=== PATIENT | male | born 1975 | race Caucasian/White ===

== ENCOUNTER 2018-06-02 14:14 | Inpatient (IN) | payer OTHER ==
[2018-06-02 14:25] VITALS: BMI 23.8
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
[2018-06-02] MEDS ORDERED: guaiFENesin/D-METHORPHAN HB 10 ML UNIT-DOSE CUPS PO PRN (15:02)
[2018-06-02] MEDS ORDERED: P-EPHED 60MG/TRIPROLIDI 2.5MG TABLET PO PRN (15:02)
[2018-06-02] MEDS ORDERED: MAGNESIUM HYDROX 2400MG/30ML ORAL SUSPENSION 30 ML CUP PO PRN (15:02)
[2018-06-02] MEDS ORDERED: IBUPROFEN 400 MG TABLET (FP) PO PRN (15:02)
[2018-06-02] MEDS ORDERED: MAGNESIUM CITRATE 300 ML BOTTLE PO PRN (15:02)
[2018-06-02] MEDS ORDERED: ACETAMINOPHEN 325 MG TABLET (FP) PO PRN (15:02)
[2018-06-02] MEDS ORDERED: MAG HYDROX/AL HYDROX/SIMETH 30 ML UNIT-DOSE CUP PO PRN (15:02)
[2018-06-02] MEDS ORDERED: MENTHOL/PHENOL 1 EACH UD MM PRN (15:02)
[2018-06-02] MEDS ORDERED: LOPERAMIDE HCL 2 MG CAPSULE PO PRN (15:02)
[2018-06-02] MEDS ORDERED: METHADONE HCL 10 MG TABLET (FOR DETOX USE ONLY) PO ONE ×2 (16:15→23:00)
[2018-06-02] MEDS: diazePAM 5 MG TABLET PO PRN (18:50)
[2018-06-02] MEDS: NICOTINE POLACRILEX 4 MG GUM BC PRN (19:42)
[2018-06-02] MEDS ORDERED: MELATONIN 5 MG TABLETS PO PRN (22:00)
[2018-06-02] MEDS: THIAMINE HCL 100 MG TABLET (FP) PO SCH (22:32)
[2018-06-03] MEDS: diazePAM 5 MG TABLET PO PRN ×4 (03:51→22:41)
[2018-06-03] MEDS: NICOTINE POLACRILEX 4 MG GUM BC PRN ×3 (06:43→14:47)
[2018-06-03] MEDS ORDERED: METHADONE HCL 10 MG TABLET (FOR DETOX USE ONLY) PO ONE (10:00)
[2018-06-03] MEDS: PRENATAL VITAMINS W/ FOLIC ACID TABLET (FP) PO SCH (10:07)
[2018-06-03 10:52] LABS: ALK PHOS 74 U/L (45-117); ANION GAP 5 MMOL/L (8-16); BILIRUBIN,TOTAL 0.5 mg/dL (0.2-1); BLOOD UREA NITROGEN 13 mg/dL (7-18); CALCIUM 8.5 mg/dL (8.5-10.1); CHLORIDE 99 mmol/L (98-107); CO2 31 mmol/L (21-32); CREATININE 0.9 mg/dL (0.55-1.3); GLUCOSE,RANDOM 60 mg/dL (74-106); POTASSIUM 3.7 mmol/L (3.5-5.1); SGOT/AST 25 U/L (15-37); SGPT/ALT 28 U/L (13-61); SODIUM 136 mmol/L (136-145)
[2018-06-03 10:59] LABS: HEMATOCRIT 41.5 % (35.4-49); HEMOGLOBIN 14.4 GM/dL (11.7-16.9); MCH 32.7 pg (25.7-33.7); MCHC 34.8 g/dl (32.0-35.9); MEAN PLT VOLUME 8.3 fl (7.5-11.1); PLATELET COUNT 184 K/MM3 (134-434); RBC 4.41 M/mm3 (4.00-5.60); RDW 13.3 % (11.9-15.9); WHITE BLOOD COUNT 7.2 K/mm3 (4.0-10.0)
--- NOTE | 2018-06-03 14:56 | PN ---
BHS COWS - Scale Resting Pulse: 0= [place] 80 or Below Sweatin= Chills/Flushing Restless Observation: 3= Extraneous Movement Pupil Size: 0= Normal to Room Light Bone or Joint Aches: 2= Severe Diffuse Aches Runny Nose/ Eye Tearin= Runny Nose/Eyes GI Upset > 30mins: 3= Vomiting/Diarrhea Tremor Observation of Outstretched Hands: 2= Slight Tremor Visible Yawning Observation: 1= 1-2x During Session Anxiety or Irritability: 2=Irritable/Anxious Goose Flesh Skin: 0=Smooth Skin COWS Score: 16 BHS Progress Note (SOAP) Subjective: Tremor, interrupted sleep Objective: 06/03/18 14:55 Last Vital Signs Temp Pulse Resp BP Pulse Ox 98.5 F 70 18 101/66 06/03/18 13:21 06/03/18 13:21 06/03/18 13:21 06/03/18 13:21 Laboratory Tests 06/03/18 06/03/18 06/03/18 07:50 07:50 07:50 WBC 7.2 RBC 4.41 Hgb 14.4 Hct 41.5 MCV 94.0 MCH 32.7 MCHC 34.8 RDW 13.3 Plt Count 184 MPV 8.3 Sodium 136 Potassium 3.7 Chloride 99 Carbon Dioxide 31 Anion Gap 5 L BUN 13 Creatinine 0.9 Creat Clearance w eGFR > 60 Random Glucose 60 L Calcium 8.5 Total Bilirubin 0.5 AST 25 ALT 28 Alkaline Phosphatase 74 Total Protein 7.0 Albumin 4.0 RPR Titer Nonreactive HIV 1&2 Antibody Screen HIV P24 Antigen 06/03/18 07:50 WBC RBC Hgb Hct MCV MCH MCHC RDW Plt Count MPV Sodium Potassium Chloride Carbon Dioxide Anion Gap BUN Creatinine Creat Clearance w eGFR Random Glucose Calcium Total Bilirubin AST ALT Alkaline Phosphatase Total Protein Albumin RPR Titer HIV 1&2 Antibody Screen Negative HIV P24 Antigen Negative Labs reviewed Assessment: 06/03/18 14:56 Withdrawal symptoms Plan: Continue detox Encourage PO water hydration
--- NOTE | 2018-06-03 22:14 | EKG ---
Test Reason : Blood Pressure : / mmHG Vent. Rate : 071 BPM Atrial Rate : 071 BPM P-R Int : 156 ms QRS Dur : 090 ms QT Int : 372 ms P-R-T Axes : 058 071 050 degrees QTc Int : 404 ms SINUS RHYTHM WITH MARKED SINUS ARRHYTHMIA OTHERWISE NORMAL ECG NO PREVIOUS ECGS AVAILABLE Confirmed by OBI PERALES MD ([id number]) on 06/03/2018 10:14:19 PM Referred By: HUGO IZAGUIRRE Confirmed By:OBI PERALES MD
[2018-06-03] MEDS: THIAMINE HCL 100 MG TABLET (FP) PO SCH (22:41)
[2018-06-04] MEDS ORDERED: METHADONE HCL 5 MG TABLET (FOR DETOX USE ONLY) PO ONE (10:00)
[2018-06-04] MEDS: PRENATAL VITAMINS W/ FOLIC ACID TABLET (FP) PO SCH (10:19)
[2018-06-04] MEDS: diazePAM 5 MG TABLET PO PRN ×2 (10:19→22:14)
[2018-06-04] MEDS: NICOTINE POLACRILEX 4 MG GUM BC PRN ×2 (10:21→20:49)
--- NOTE | 2018-06-04 12:05 | PN ---
BHS COWS - Scale Resting Pulse: 0= [place] 80 or Below Sweatin=Flushed/Facial Moisture Restless Observation: 0= Sits Still Pupil Size: 0= Normal to Room Light Bone or Joint Aches: 1= Mild Discomfort Runny Nose/ Eye Tearin= Nasal Congestion GI Upset > 30mins: 1= Stomach Cramp Tremor Observation of Outstretched Hands: 2= Slight Tremor Visible Yawning Observation: 0= None Anxiety or Irritability: 1=Feels Anxious/Irritable Goose Flesh Skin: 0=Smooth Skin COWS Score: 8 BHS Progress Note (SOAP) Subjective: abd cramp sweats Objective: 06/04/18 12:03 A & O x 3 Met sitting in day room cahtting with other pts In no acute distress Vital Signs Temperature 98.1 F 06/04/18 09:09 Pulse Rate 72 06/04/18 09:09 Respiratory Rate 18 06/04/18 09:09 Blood Pressure 127/68 06/04/18 09:09 O2 Sat by Pulse Oximetry (%) Assessment: 06/04/18 12:04 withdrawal sx Plan: continue detox continue water hydration
[2018-06-04] MEDS: THIAMINE HCL 100 MG TABLET (FP) PO SCH (22:14)
[2018-06-05] MEDS: METHADONE HCL 5 MG TABLET (FOR DETOX USE ONLY) PO ONE ×2 (10:34→10:39)
[2018-06-05] MEDS: diazePAM 5 MG TABLET PO PRN ×2 (10:34→10:38)
[2018-06-05] MEDS: PRENATAL VITAMINS W/ FOLIC ACID TABLET (FP) PO SCH ×2 (10:34→10:38)
[2018-06-05] MEDS: NICOTINE POLACRILEX 4 MG GUM BC PRN ×3 (10:40→22:08)
--- NOTE | 2018-06-05 12:39 | PN ---
BHS Progress Note (SOAP) Subjective: Sweating, Interrupted Sleep. Objective: PATIENT A & O X 2 (UNCERTAIN ABOUT CURRENT DAY / DATE). PATIENT OBSERVED AMBULATING ON UNIT. IN NO ACUTE DISTRESS. 06/05/18 12:40 Vital Signs Temperature 96.4 F L 06/05/18 09:54 Pulse Rate 56 L 06/05/18 09:54 Respiratory Rate 16 06/05/18 09:54 Blood Pressure 116/69 06/05/18 09:54 O2 Sat by Pulse Oximetry (%) Laboratory Tests 06/03/18 06/03/18 06/03/18 07:50 07:50 07:50 WBC 7.2 RBC 4.41 Hgb 14.4 Hct 41.5 MCV 94.0 MCH 32.7 MCHC 34.8 RDW 13.3 Plt Count 184 MPV 8.3 Sodium 136 Potassium 3.7 Chloride 99 Carbon Dioxide 31 Anion Gap 5 L BUN 13 Creatinine 0.9 Creat Clearance w eGFR > 60 Random Glucose 60 L Calcium 8.5 Total Bilirubin 0.5 AST 25 ALT 28 Alkaline Phosphatase 74 Total Protein 7.0 Albumin 4.0 RPR Titer Nonreactive HIV 1&2 Antibody Screen HIV P24 Antigen 06/03/18 07:50 WBC RBC Hgb Hct MCV MCH MCHC RDW Plt Count MPV Sodium Potassium Chloride Carbon Dioxide Anion Gap BUN Creatinine Creat Clearance w eGFR Random Glucose Calcium Total Bilirubin AST ALT Alkaline Phosphatase Total Protein Albumin RPR Titer HIV 1&2 Antibody Screen Negative HIV P24 Antigen Negative LABS NOTED. Assessment: 06/05/18 12:40 WITHDRAWAL SYMPTOMS. Plan: CONTINUE DETOX. INCREASE DAILY PO FLUID INTAKE.
[2018-06-05] MEDS: THIAMINE HCL 100 MG TABLET (FP) PO SCH (23:31)
[2018-06-06] MEDS: NICOTINE POLACRILEX 4 MG GUM BC PRN ×5 (06:00→19:33)
[2018-06-06] MEDS ORDERED: METHADONE HCL 10 MG TABLET (FOR DETOX USE ONLY) PO ONE (10:00)
[2018-06-06] MEDS: PRENATAL VITAMINS W/ FOLIC ACID TABLET (FP) PO SCH (10:06)
--- NOTE | 2018-06-06 15:28 | PN ---
BHS Progress Note (SOAP) Subjective: Sweating (Mild), Interrupted Sleep. Patient Reports that Withdrawal Symptoms in General are Decreasing in Severity. Objective: PATIENT A & O X 3, OBSERVED AMBULATING ON UNIT. IN NO ACUTE DISTRESS. 06/06/18 15:29 Vital Signs Temperature 97.9 F 06/06/18 13:04 Pulse Rate 76 06/06/18 13:04 Respiratory Rate 18 06/06/18 13:04 Blood Pressure 115/66 06/06/18 13:04 O2 Sat by Pulse Oximetry (%) Laboratory Tests 06/03/18 06/03/18 06/03/18 07:50 07:50 07:50 WBC 7.2 RBC 4.41 Hgb 14.4 Hct 41.5 MCV 94.0 MCH 32.7 MCHC 34.8 RDW 13.3 Plt Count 184 MPV 8.3 Sodium 136 Potassium 3.7 Chloride 99 Carbon Dioxide 31 Anion Gap 5 L BUN 13 Creatinine 0.9 Creat Clearance w eGFR > 60 Random Glucose 60 L Calcium 8.5 Total Bilirubin 0.5 AST 25 ALT 28 Alkaline Phosphatase 74 Total Protein 7.0 Albumin 4.0 RPR Titer Nonreactive HIV 1&2 Antibody Screen HIV P24 Antigen 06/03/18 07:50 WBC RBC Hgb Hct MCV MCH MCHC RDW Plt Count MPV Sodium Potassium Chloride Carbon Dioxide Anion Gap BUN Creatinine Creat Clearance w eGFR Random Glucose Calcium Total Bilirubin AST ALT Alkaline Phosphatase Total Protein Albumin RPR Titer HIV 1&2 Antibody Screen Negative HIV P24 Antigen Negative LABS NOTED. Assessment: 06/06/18 15:30 WITHDRAWAL SYMPTOMS. Plan: CONTINUE DETOX. PATIENT SCHEDULED FOR D/C TOMORROW.
[2018-06-06] MEDS: THIAMINE HCL 100 MG TABLET (FP) PO SCH (22:19)
[2018-06-07] MEDS ORDERED: METHADONE HCL 5 MG TABLET (FOR DETOX USE ONLY) PO ONE (06:00)
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
[2018-06-07] MEDS: PRENATAL VITAMINS W/ FOLIC ACID TABLET (FP) PO SCH (09:47)
[2018-06-07] MEDS: NICOTINE POLACRILEX 4 MG GUM BC PRN ×2 (09:47→12:41)
[2018-06-07 17:19] VITALS: TEMP 97.7
[2018-06-07 17:22] VITALS: BP 105/62; PULSE 69
== END 2018-06-07 17:42 | disposition other institution (70) | DRG 773 ==
LOC: YASAS 14:14 → Y6N 15:03
PROVIDERS: ADMIT Surgery; ATTEND Surgery
PROC: HZ2ZZZZ Detoxification Services for Substance Abuse Treatment (ICD-10-PCS; principal; 2018-06-02)
PROC: HZ2ZZZZ Detoxification Services for Substance Abuse Treatment (ICD-10-PCS; 2018-06-02)
DX: F11.23 Opioid dependence with withdrawal (principal); F17.210 Nicotine dependence, cigarettes, uncomplicated; B18.2 Chronic viral hepatitis C; Z86.19 Personal history of other infectious and parasitic diseases; Z87.828 Personal history of other (healed) physical injury and trauma
CPT/HCPCS: 36415; 80053; 85027; 86593; 87389; 93005; 93010

== ENCOUNTER 2018-06-07 17:49 | Inpatient (IN) | payer OTHER ==
--- NOTE | 2018-06-07 17:59 | HP ---
[facility] Rehab Assess/Revision - Admission History Admitted to Rehab from[facility] - Findings Detox History & Physical reviewed: Yes Concur with findings: Yes Inpatient Rehab Admission - Rehab Decision to Admit Inpatient rehab admission?: Yes - Initial Determination Are CD services needed?: Yes Free of communicable disease: Yes Not in need of hospitalization: Yes - Rehab Admission Criteria Previous failed treatment: Yes Poor recovery environment: Yes Comorbidities: Yes Lacks judgement: Yes Patient is meeting Inpatient Rehab admission criteria:: Yes
[2018-06-07] MEDS ORDERED: ACETAMINOPHEN 325 MG TABLET (FP) PO PRN (18:01)
[2018-06-07] MEDS ORDERED: MENTHOL/PHENOL 1 EACH UD MM PRN (18:01)
[2018-06-07] MEDS ORDERED: P-EPHED 60MG/TRIPROLIDI 2.5MG TABLET PO PRN (18:01)
[2018-06-07] MEDS ORDERED: LOPERAMIDE HCL 2 MG CAPSULE PO PRN (18:01)
[2018-06-07] MEDS ORDERED: MAGNESIUM CITRATE 300 ML BOTTLE PO PRN (18:01)
[2018-06-07] MEDS ORDERED: IBUPROFEN 400 MG TABLET (FP) PO PRN (18:01)
[2018-06-07] MEDS ORDERED: guaiFENesin/D-METHORPHAN HB 10 ML UNIT-DOSE CUPS PO PRN (18:01)
[2018-06-07] MEDS ORDERED: MAG HYDROX/AL HYDROX/SIMETH 30 ML UNIT-DOSE CUP PO PRN (18:01)
[2018-06-07] MEDS ORDERED: MAGNESIUM HYDROX 2400MG/30ML ORAL SUSPENSION 30 ML CUP PO PRN (18:01)
[2018-06-07] MEDS ORDERED: hydrOXYzine PAMOATE 50 MG CAPSULE (FP) PO PRN (18:01)
[2018-06-07] MEDS: THIAMINE HCL 100 MG TABLET (FP) PO SCH (21:17)
[2018-06-07] MEDS: NICOTINE POLACRILEX 2 MG GUM BC PRN (21:18)
[2018-06-07] MEDS ORDERED: MELATONIN 5 MG TABLETS PO PRN (22:00)
[2018-06-08] MEDS: NICOTINE POLACRILEX 2 MG GUM BC PRN ×3 (06:21→21:15)
[2018-06-08] MEDS: NICOTINE 14 MG/24 HOURS TOPICAL PATCH TD SCH (10:20)
[2018-06-08] MEDS: PRENATAL VITAMINS W/ FOLIC ACID TABLET (FP) PO SCH (10:20)
[2018-06-08] MEDS: THIAMINE HCL 100 MG TABLET (FP) PO SCH (21:15)
[2018-06-09] MEDS: NICOTINE 14 MG/24 HOURS TOPICAL PATCH TD SCH (10:55)
[2018-06-09] MEDS: PRENATAL VITAMINS W/ FOLIC ACID TABLET (FP) PO SCH (10:55)
[2018-06-09] MEDS: THIAMINE HCL 100 MG TABLET (FP) PO SCH (21:09)
[2018-06-09] MEDS: NICOTINE POLACRILEX 2 MG GUM BC PRN (21:09)
[2018-06-10] MEDS: PRENATAL VITAMINS W/ FOLIC ACID TABLET (FP) PO SCH (10:45)
[2018-06-10] MEDS: NICOTINE 14 MG/24 HOURS TOPICAL PATCH TD SCH (10:45)
[2018-06-10] MEDS: NICOTINE POLACRILEX 2 MG GUM BC PRN (21:07)
[2018-06-10] MEDS: THIAMINE HCL 100 MG TABLET (FP) PO SCH (21:07)
[2018-06-11] MEDS: NICOTINE 14 MG/24 HOURS TOPICAL PATCH TD SCH (10:37)
[2018-06-11] MEDS: PRENATAL VITAMINS W/ FOLIC ACID TABLET (FP) PO SCH (10:37)
[2018-06-11] MEDS: NICOTINE POLACRILEX 2 MG GUM BC PRN (21:12)
[2018-06-11] MEDS: THIAMINE HCL 100 MG TABLET (FP) PO SCH (21:12)
[2018-06-12] MEDS: PRENATAL VITAMINS W/ FOLIC ACID TABLET (FP) PO SCH (09:37)
[2018-06-12] MEDS: NICOTINE POLACRILEX 2 MG GUM BC PRN ×2 (09:37→21:06)
[2018-06-12] MEDS: NICOTINE 14 MG/24 HOURS TOPICAL PATCH TD SCH (09:37)
[2018-06-12] MEDS: THIAMINE HCL 100 MG TABLET (FP) PO SCH (21:06)
[2018-06-13] MEDS: NICOTINE POLACRILEX 2 MG GUM BC PRN ×2 (09:35→21:12)
[2018-06-13] MEDS: NICOTINE 14 MG/24 HOURS TOPICAL PATCH TD SCH (09:35)
[2018-06-13] MEDS: PRENATAL VITAMINS W/ FOLIC ACID TABLET (FP) PO SCH (09:35)
[2018-06-13] MEDS: THIAMINE HCL 100 MG TABLET (FP) PO SCH (21:12)
[2018-06-14] MEDS: PRENATAL VITAMINS W/ FOLIC ACID TABLET (FP) PO SCH (10:03)
[2018-06-14] MEDS: NICOTINE 14 MG/24 HOURS TOPICAL PATCH TD SCH (10:03)
--- NOTE | 2018-06-14 12:13 | PN ---
BHS Progress Note Note: NURSE EPORTS THAT PT WANTS, MVI,THIAMINE AND NICOTINE PATCH DICONTINUED. Vital Signs (72 hours) 06/12/18 06/12/18 06/12/18 00:30 03:30 06:55 Temperature 97.6 F Pulse Rate 57 L Respiratory 18 18 18 Rate Blood Pressure 129/53 L 06/13/18 06/13/18 06/14/18 00:30 07:50 03:30 Temperature 97.8 F Pulse Rate 58 L Respiratory 18 17 16 Rate Blood Pressure 126/69 06/14/18 06:59 Temperature 97.5 F L Pulse Rate 59 L Respiratory 16 Rate Blood Pressure 116/60
[2018-06-14] MEDS: NICOTINE POLACRILEX 2 MG GUM BC PRN (21:10)
[2018-06-15] MEDS: NICOTINE POLACRILEX 2 MG GUM BC PRN ×2 (10:52→22:58)
[2018-06-16] MEDS: NICOTINE POLACRILEX 2 MG GUM BC PRN ×2 (14:32→21:05)
[2018-06-17] MEDS: NICOTINE POLACRILEX 2 MG GUM BC PRN ×3 (14:14→22:03)
[2018-06-18] MEDS: NICOTINE POLACRILEX 2 MG GUM BC PRN ×2 (18:44→21:10)
[2018-06-19] MEDS: NICOTINE POLACRILEX 2 MG GUM BC PRN (09:35)
[2018-06-20 06:37] VITALS: BP 114/65; PULSE 72; TEMP 98.1
[2018-06-20] MEDS: NICOTINE POLACRILEX 2 MG GUM BC PRN ×4 (10:08→21:59)
--- NOTE | 2018-06-21 09:29 | PN ---
[facility] Progress Note Note: PT COMPLETED REHAB AND REFERRED TO [facility] FOR CD AFTER[facility]ARE ON [address], [place]. PT REPORTS HE GETS PRIMARY CARE AT [facility] WHEN NEEDED. PT IS ALERT O X 3. AMBULATES WITH STEADY GAIT. DENIES S/H/I. Home Medications Medication Instructions Recorded Naloxone HCl [Narcan] 4 mg NS ONCE #1 spray 06/21/18 Vital Signs (72 hours) 06/19/18 06/19/18 06/20/18 03:30 06:45 00:30 Temperature 97.6 F Pulse Rate 71 Respiratory 16 18 18 Rate Blood Pressure 111/65 06/20/18 06/20/18 06/21/18 03:30 06:36 00:30 Temperature 98.1 F Pulse Rate 72 Respiratory 18 16 18 Rate Blood Pressure 114/65 06/21/18 03:30 Temperature Pulse Rate Respiratory 18 Rate Blood Pressure NAD MEDICALLY STABLE PLAN:FOLLOW UP WITH CD AFTERCARE ON 06/21/18 AT 11:00 AND MEDICAL MANAGEMENT RECOMMENDED. ADDENDUM:PT DECLINED ABOVE NARCAN STATING "I HAVE MULTIPLE NARCAN. I DON'T NEED ANY NOW".
[2018-06-21] MEDS: NICOTINE POLACRILEX 2 MG GUM BC PRN (10:05)
== END 2018-06-21 10:30 | disposition home or self-care (01) | DRG 772 ==
LOC: YASAS 17:49 → Y5N 17:50
PROVIDERS: ADMIT Neuromusculoskeletal Medicine & OMM; ATTEND Neuromusculoskeletal Medicine & OMM
PROC: HZ42ZZZ Group Counseling for Substance Abuse Treatment, Cognitive-Behavioral (ICD-10-PCS; principal; 2018-06-07)
DX: F11.20 Opioid dependence, uncomplicated (principal); F17.210 Nicotine dependence, cigarettes, uncomplicated; B18.2 Chronic viral hepatitis C

== ENCOUNTER 2019-04-17 12:54 | Inpatient (IN) | payer OTHER ==
[2019-04-17 15:36] VITALS: BMI 22.4
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
[2019-04-17] MEDS ORDERED: NICOTINE POLACRILEX 2 MG GUM BUC PRN (18:48)
[2019-04-17] MEDS ORDERED: ACETAMINOPHEN 325 MG TABLET (FP) PO PRN ×2 (18:48)
[2019-04-17] MEDS ORDERED: MENTHOL/PHENOL 1 EACH UD MM PRN (18:48)
[2019-04-17] MEDS ORDERED: MAGNESIUM CITRATE 300 ML BOTTLE PO PRN (18:48)
[2019-04-17] MEDS ORDERED: MAG HYDROX/AL HYDROX/SIMETH 30 ML UNIT-DOSE CUP PO PRN (18:48)
[2019-04-17] MEDS ORDERED: METHOCARBAMOL 500 MG TABLET PO PRN (18:48)
[2019-04-17] MEDS ORDERED: MAGNESIUM HYDROX 2400MG/30ML ORAL SUSPENSION 30 ML CUP PO PRN (18:48)
[2019-04-17] MEDS ORDERED: METHADONE HCL 10 MG TABLET (FOR DETOX USE ONLY) PO ONE (18:48)
[2019-04-17] MEDS ORDERED: PROCHLORPERAZINE MALEATE 5 MG TABLET PO PRN (18:48)
[2019-04-17] MEDS ORDERED: BISMUTH SUBSALICYLATE 524 MG/30 ML UD PO PRN (18:48)
[2019-04-17] MEDS ORDERED: IBUPROFEN 400 MG TABLET (FP) PO PRN (18:48)
[2019-04-17] MEDS: clonazePAM 0.5 MG TABLET PO PRN (20:18)
[2019-04-17] MEDS: THIAMINE HCL 100 MG TABLET (FP) PO SCH (22:44)
[2019-04-17] MEDS: MELATONIN 5 MG TABLETS PO PRN (22:45)
[2019-04-18] MEDS ORDERED: METHADONE HCL 5 MG TABLET (FOR DETOX USE ONLY) PO ONE (10:00)
[2019-04-18] MEDS: NICOTINE 21 MG/24 HOURS TOPICAL PATCH TD SCH (10:21)
[2019-04-18] MEDS: PRENATAL VITAMINS W/ FOLIC ACID TABLET (FP) PO SCH (10:21)
[2019-04-18 10:45] LABS: HEMATOCRIT 40.5 % (35.4-49); HEMOGLOBIN 13.4 GM/dL (11.7-16.9); MCH 30.6 pg (25.7-33.7); MCHC 33.2 g/dl (32.0-35.9); MEAN CELL VOLUME 92.1 fl (80-96); MEAN PLT VOLUME 8.3 fl (7.5-11.1); PLATELET COUNT 232 K/MM3 (134-434); RDW 13.5 % (11.9-15.9); WHITE BLOOD COUNT 7.5 K/mm3 (4.0-10.0)
[2019-04-18 11:01] LABS: ALBUMIN 3.3 g/dl (3.4-5.0); BILIRUBIN,TOTAL 0.3 mg/dL (0.2-1); BLOOD UREA NITROGEN 21.8 mg/dL (7-18); CALCIUM 8.9 mg/dL (8.5-10.1); CREATININE 0.8 mg/dL (0.55-1.3); POTASSIUM 4.3 mmol/L (3.5-5.1); TOT PROT 6.3 g/dl (6.4-8.2)
--- NOTE | 2019-04-18 11:53 | EKG ---
Test Reason : Blood Pressure : / mmHG Vent. Rate : 068 BPM Atrial Rate : 068 BPM P-R Int : 164 ms QRS Dur : 084 ms QT Int : 386 ms P-R-T Axes : 061 086 068 degrees QTc Int : 410 ms NORMAL SINUS RHYTHM NORMAL ECG WHEN COMPARED WITH ECG OF 02-JUN-2018 18:34, NO SIGNIFICANT CHANGE WAS FOUND Confirmed by SAHARA HERRERA MD ([id number]) on 04/18/2019 11:53:08 AM Referred By: Confirmed By:SAHARA HERRERA MD
--- NOTE | 2019-04-18 12:58 | PN ---
S COWS - Scale Resting Pulse: 0= [place] 80 or Below Sweatin= Chills/Flushing Restless Observation: 0= Sits Still Pupil Size: 1= Pupils >than Normal Bone or Joint Aches: 1= Mild Discomfort Runny Nose/ Eye Tearin= None GI Upset > 30mins: 2= Nausea/Diarrhea Tremor Observation of Outstretched Hands: 1= Tremor [place], Not Seen Yawning Observation: 0= None Anxiety or Irritability: 2=Irritable/Anxious Goose Flesh Skin: 3=Piloerection COWS Score: 11 [facility] Progress Note (SOAP) Subjective: 44 years old male admitted on 04/17/19 for opiate withdrawal sx management treating with methadone detox regimen ate breakfast and lunch tolerated food and fluid well encourage the patient to attend behavioral and psychosocial therapies while in detox Objective: 04/18/19 13:07 Vital Signs Temperature 98.0 F 04/18/19 13:06 Pulse Rate 67 04/18/19 13:06 Respiratory Rate 18 04/18/19 13:06 Blood Pressure 112/70 04/18/19 13:06 O2 Sat by Pulse Oximetry (%) Laboratory Last Values WBC 7.5 K/mm3 (4.0-10.0) 04/18/19 08:15 RBC 4.40 M/mm3 (4.00-5.60) 04/18/19 08:15 Hgb 13.4 GM/dL (11.7-16.9) 04/18/19 08:15 Hct 40.5 % (35.4-49) 04/18/19 08:15 MCV 92.1 fl (80-96) 04/18/19 08:15 MCH 30.6 pg (25.7-33.7) 04/18/19 08:15 MCHC 33.2 g/dl (32.0-35.9) 04/18/19 08:15 RDW 13.5 % (11.9-15.9) 04/18/19 08:15 Plt Count 232 K/MM3 (134-434) D 04/18/19 08:15 MPV 8.3 fl (7.5-11.1) 04/18/19 08:15 Sodium 142 mmol/L (136-145) 04/18/19 08:15 Potassium 4.3 mmol/L (3.5-5.1) 04/18/19 08:15 Chloride 109 mmol/L (98-107) H 04/18/19 08:15 Carbon Dioxide 28 mmol/L (21-32) 04/18/19 08:15 Anion Gap 5 MMOL/L (8-16) L 04/18/19 08:15 BUN 21.8 mg/dL (7-18) H 04/18/19 08:15 Creatinine 0.8 mg/dL (0.55-1.3) 04/18/19 08:15 Est GFR (CKD-EPI)AfAm 126.81 04/18/19 08:15 Est GFR (CKD-EPI)NonAf 109.41 04/18/19 08:15 Random Glucose 82 mg/dL (74-106) 04/18/19 08:15 Calcium 8.9 mg/dL (8.5-10.1) 04/18/19 08:15 Total Bilirubin 0.3 mg/dL (0.2-1) 04/18/19 08:15 AST 12 U/L (15-37) L 04/18/19 08:15 ALT 20 U/L (13-61) 04/18/19 08:15 Alkaline Phosphatase 64 U/L (45-117) 04/18/19 08:15 Total Protein 6.3 g/dl (6.4-8.2) L 04/18/19 08:15 Albumin 3.3 g/dl (3.4-5.0) L 04/18/19 08:15 RPR Titer Nonreactive (NONREACTIVE) 04/18/19 08:15 lab noted Assessment: 04/18/19 13:10 opiate withdrawal Plan: methadone regimen
[2019-04-18] MEDS: THIAMINE HCL 100 MG TABLET (FP) PO SCH (22:13)
[2019-04-18] MEDS: MELATONIN 5 MG TABLETS PO PRN (22:13)
[2019-04-19] MEDS ORDERED: METHADONE HCL 10 MG TABLET (FOR DETOX USE ONLY) PO ONE ×2 (09:45→10:00)
--- NOTE | 2019-04-19 09:46 | PN ---
[facility] COWS - Scale Resting Pulse: 0= [place] 80 or Below Sweatin= Chills/Flushing Restless Observation: 1= Difficult to Sit Still Pupil Size: 0= Normal to Room Light Bone or Joint Aches: 1= Mild Discomfort Runny Nose/ Eye Tearin= Nasal Congestion GI Upset > 30mins: 1= Stomach Cramp Tremor Observation of Outstretched Hands: 1= Tremor [place], Not Seen Yawning Observation: 2= >3x During Session Anxiety or Irritability: 1=Feels Anxious/Irritable Goose Flesh Skin: 0=Smooth Skin COWS Score: 9 [facility] Progress Note (SOAP) Subjective: c/o of interrupted sleep, chills and sweats Objective: 04/19/19 09:44 Vital Signs Temperature 98 F 04/19/19 09:05 Pulse Rate 70 04/19/19 09:05 Respiratory Rate 20 04/19/19 09:05 Blood Pressure 106/58 L 04/19/19 09:05 O2 Sat by Pulse Oximetry (%) Laboratory Last Values WBC 7.5 K/mm3 (4.0-10.0) 04/18/19 08:15 RBC 4.40 M/mm3 (4.00-5.60) 04/18/19 08:15 Hgb 13.4 GM/dL (11.7-16.9) 04/18/19 08:15 Hct 40.5 % (35.4-49) 04/18/19 08:15 MCV 92.1 fl (80-96) 04/18/19 08:15 MCH 30.6 pg (25.7-33.7) 04/18/19 08:15 MCHC 33.2 g/dl (32.0-35.9) 04/18/19 08:15 RDW 13.5 % (11.9-15.9) 04/18/19 08:15 Plt Count 232 K/MM3 (134-434) D 04/18/19 08:15 MPV 8.3 fl (7.5-11.1) 04/18/19 08:15 Sodium 142 mmol/L (136-145) 04/18/19 08:15 Potassium 4.3 mmol/L (3.5-5.1) 04/18/19 08:15 Chloride 109 mmol/L (98-107) H 04/18/19 08:15 Carbon Dioxide 28 mmol/L (21-32) 04/18/19 08:15 Anion Gap 5 MMOL/L (8-16) L 04/18/19 08:15 BUN 21.8 mg/dL (7-18) H 04/18/19 08:15 Creatinine 0.8 mg/dL (0.55-1.3) 04/18/19 08:15 Est GFR (CKD-EPI)AfAm 126.81 04/18/19 08:15 Est GFR (CKD-EPI)NonAf 109.41 04/18/19 08:15 Random Glucose 82 mg/dL (74-106) 04/18/19 08:15 Calcium 8.9 mg/dL (8.5-10.1) 04/18/19 08:15 Total Bilirubin 0.3 mg/dL (0.2-1) 04/18/19 08:15 AST 12 U/L (15-37) L 04/18/19 08:15 ALT 20 U/L (13-61) 04/18/19 08:15 Alkaline Phosphatase 64 U/L (45-117) 04/18/19 08:15 Total Protein 6.3 g/dl (6.4-8.2) L 04/18/19 08:15 Albumin 3.3 g/dl (3.4-5.0) L 04/18/19 08:15 RPR Titer Nonreactive (NONREACTIVE) 04/18/19 08:15 Assessment: 04/19/19 09:45 Aox3 no acute distress EENT WNL Full ROM ambulating in the unit withdrawal sx Plan: increase fluids continue detox continue to monitor
[2019-04-19] MEDS ORDERED: METHADONE HCL 5 MG TABLET (FOR DETOX USE ONLY) PO ONE (10:00)
[2019-04-19] MEDS: PRENATAL VITAMINS W/ FOLIC ACID TABLET (FP) PO SCH (10:54)
[2019-04-19] MEDS: NICOTINE 21 MG/24 HOURS TOPICAL PATCH TD SCH (10:54)
[2019-04-19] MEDS: THIAMINE HCL 100 MG TABLET (FP) PO SCH (22:28)
[2019-04-19] MEDS: MELATONIN 5 MG TABLETS PO PRN (22:29)
[2019-04-20 08:00] LABS: URINE APPEARANCE CLEAR; URINE BILIRUBIN NEGATIVE (NEGATIVE); URINE COLOR YELLOW; URINE GLUCOSE (UA) NEGATIVE (NEGATIVE); URINE KETONE NEGATIVE (NEGATIVE); URINE LEUK ESTERASE NEGATIVE (NEGATIVE); URINE NITRITE NEGATIVE (NEGATIVE); URINE PROTEIN NEGATIVE (NEGATIVE); URINE UROBILINOGEN 0.2 mg/dL (0.2-1.0)
[2019-04-20] MEDS ORDERED: METHADONE HCL 5 MG TABLET (FOR DETOX USE ONLY) PO ONE (10:00)
[2019-04-20] MEDS: PRENATAL VITAMINS W/ FOLIC ACID TABLET (FP) PO SCH (10:51)
[2019-04-20] MEDS: NICOTINE 21 MG/24 HOURS TOPICAL PATCH TD SCH (11:14)
--- NOTE | 2019-04-20 11:25 | PN ---
[facility] COWS - Scale Resting Pulse: 0= [place] 80 or Below Sweatin= No chills or Flushing Restless Observation: 0= Sits Still Pupil Size: 0= Normal to Room Light Bone or Joint Aches: 2= Severe Diffuse Aches Runny Nose/ Eye Tearin= None GI Upset > 30mins: 0= None Tremor Observation of Outstretched Hands: 0= None Yawning Observation: 0= None Anxiety or Irritability: 2=Irritable/Anxious Goose Flesh Skin: 0=Smooth Skin COWS Score: 4 [facility] Progress Note (SOAP) Subjective: c/o mild withdrawal symptoms. Objective: 04/20/19 11:24 Vital Signs 04/20/19 04/20/19 04/20/19 03:30 06:49 09:25 Temperature 97.0 F L 96.9 F L Pulse Rate 58 L 62 Respiratory 18 18 18 Rate Blood Pressure 103/58 L 104/68 Laboratory Last Values WBC 7.5 K/mm3 (4.0-10.0) 04/18/19 08:15 RBC 4.40 M/mm3 (4.00-5.60) 04/18/19 08:15 Hgb 13.4 GM/dL (11.7-16.9) 04/18/19 08:15 Hct 40.5 % (35.4-49) 04/18/19 08:15 MCV 92.1 fl (80-96) 04/18/19 08:15 MCH 30.6 pg (25.7-33.7) 04/18/19 08:15 MCHC 33.2 g/dl (32.0-35.9) 04/18/19 08:15 RDW 13.5 % (11.9-15.9) 04/18/19 08:15 Plt Count 232 K/MM3 (134-434) D 04/18/19 08:15 MPV 8.3 fl (7.5-11.1) 04/18/19 08:15 Sodium 142 mmol/L (136-145) 04/18/19 08:15 Potassium 4.3 mmol/L (3.5-5.1) 04/18/19 08:15 Chloride 109 mmol/L (98-107) H 04/18/19 08:15 Carbon Dioxide 28 mmol/L (21-32) 04/18/19 08:15 Anion Gap 5 MMOL/L (8-16) L 04/18/19 08:15 BUN 21.8 mg/dL (7-18) H 04/18/19 08:15 Creatinine 0.8 mg/dL (0.55-1.3) 04/18/19 08:15 Est GFR (CKD-EPI)AfAm 126.81 04/18/19 08:15 Est GFR (CKD-EPI)NonAf 109.41 04/18/19 08:15 Random Glucose 82 mg/dL (74-106) 04/18/19 08:15 Calcium 8.9 mg/dL (8.5-10.1) 04/18/19 08:15 Total Bilirubin 0.3 mg/dL (0.2-1) 04/18/19 08:15 AST 12 U/L (15-37) L 04/18/19 08:15 ALT 20 U/L (13-61) 04/18/19 08:15 Alkaline Phosphatase 64 U/L (45-117) 04/18/19 08:15 Total Protein 6.3 g/dl (6.4-8.2) L 04/18/19 08:15 Albumin 3.3 g/dl (3.4-5.0) L 04/18/19 08:15 Urine Color Yellow 04/19/19 00:05 Urine Appearance Clear 04/19/19 00:05 Urine pH 6.0 (5.0-8.0) 04/19/19 00:05 Ur Specific [place] 1.032 (1.010-1.035) 04/19/19 00:05 Urine Protein Negative (NEGATIVE) 04/19/19 00:05 Urine Glucose (UA) Negative (NEGATIVE) 04/19/19 00:05 Urine Ketones Negative (NEGATIVE) 04/19/19 00:05 Urine Blood Negative (NEGATIVE) 04/19/19 00:05 Urine Nitrite Negative (NEGATIVE) 04/19/19 00:05 Urine Bilirubin Negative (NEGATIVE) 04/19/19 00:05 Urine Urobilinogen 0.2 mg/dL (0.2-1.0) 04/19/19 00:05 Ur Leukocyte Esterase Negative (NEGATIVE) 04/19/19 00:05 RPR Titer Nonreactive (NONREACTIVE) 04/18/19 08:15 Labs noted. Assessment: 04/20/19 11:24 AOX3, in no acute respiratory distress. Full ROM, ambulating in the unit. Mild withdrawal symptoms. For d/c tomorrow. Plan: continue detox. D/C in AM.
[2019-04-20] MEDS: THIAMINE HCL 100 MG TABLET (FP) PO SCH (22:22)
[2019-04-20] MEDS: MELATONIN 5 MG TABLETS PO PRN (22:23)
[2019-04-20] MEDS: clonazePAM 0.5 MG TABLET PO PRN (22:23)
[2019-04-21] MEDS ORDERED: METHADONE HCL 5 MG TABLET (FOR DETOX USE ONLY) PO ONE (06:00)
--- NOTE | 2019-04-21 09:01 | DS ---
[facility] Detox Discharge Summary Admission Date: 04/17/19 Discharge Date: 04/21/19 - History Present History: Opioid Dependence Additional Comments: 44 years old male admitted on 04/17/19 for opiate withdrawal sx management treatd with methadone detox regimen completed detox regimen tolerated well alert oriented x 3 cardiac s1s2 regular rate rhythm respiratory clear lungs bilaterally on auscultation skin warm and dry - Physical Exam Results Vital Signs: Vital Signs Temperature 97.1 F L 04/21/19 06:49 Pulse Rate 60 04/21/19 06:49 Respiratory Rate 18 04/21/19 06:49 Blood Pressure 102/63 04/21/19 06:49 O2 Sat by Pulse Oximetry (%) Pertinent Admission Physical Exam Findings: opiate withdrawal Laboratory Last Values WBC 7.5 K/mm3 (4.0-10.0) 04/18/19 08:15 RBC 4.40 M/mm3 (4.00-5.60) 04/18/19 08:15 Hgb 13.4 GM/dL (11.7-16.9) 04/18/19 08:15 Hct 40.5 % (35.4-49) 04/18/19 08:15 MCV 92.1 fl (80-96) 04/18/19 08:15 MCH 30.6 pg (25.7-33.7) 04/18/19 08:15 MCHC 33.2 g/dl (32.0-35.9) 04/18/19 08:15 RDW 13.5 % (11.9-15.9) 04/18/19 08:15 Plt Count 232 K/MM3 (134-434) D 04/18/19 08:15 MPV 8.3 fl (7.5-11.1) 04/18/19 08:15 Sodium 142 mmol/L (136-145) 04/18/19 08:15 Potassium 4.3 mmol/L (3.5-5.1) 04/18/19 08:15 Chloride 109 mmol/L (98-107) H 04/18/19 08:15 Carbon Dioxide 28 mmol/L (21-32) 04/18/19 08:15 Anion Gap 5 MMOL/L (8-16) L 04/18/19 08:15 BUN 21.8 mg/dL (7-18) H 04/18/19 08:15 Creatinine 0.8 mg/dL (0.55-1.3) 04/18/19 08:15 Est GFR (CKD-EPI)AfAm 126.81 04/18/19 08:15 Est GFR (CKD-EPI)NonAf 109.41 04/18/19 08:15 Random Glucose 82 mg/dL (74-106) 04/18/19 08:15 Calcium 8.9 mg/dL (8.5-10.1) 04/18/19 08:15 Total Bilirubin 0.3 mg/dL (0.2-1) 04/18/19 08:15 AST 12 U/L (15-37) L 04/18/19 08:15 ALT 20 U/L (13-61) 04/18/19 08:15 Alkaline Phosphatase 64 U/L (45-117) 04/18/19 08:15 Total Protein 6.3 g/dl (6.4-8.2) L 04/18/19 08:15 Albumin 3.3 g/dl (3.4-5.0) L 04/18/19 08:15 Urine Color Yellow 04/19/19 00:05 Urine Appearance Clear 04/19/19 00:05 Urine pH 6.0 (5.0-8.0) 04/19/19 00:05 Ur Specific [place] 1.032 (1.010-1.035) 04/19/19 00:05 Urine Protein Negative (NEGATIVE) 04/19/19 00:05 Urine Glucose (UA) Negative (NEGATIVE) 04/19/19 00:05 Urine Ketones Negative (NEGATIVE) 04/19/19 00:05 Urine Blood Negative (NEGATIVE) 04/19/19 00:05 Urine Nitrite Negative (NEGATIVE) 04/19/19 00:05 Urine Bilirubin Negative (NEGATIVE) 04/19/19 00:05 Urine Urobilinogen 0.2 mg/dL (0.2-1.0) 04/19/19 00:05 Ur Leukocyte Esterase Negative (NEGATIVE) 04/19/19 00:05 RPR Titer Nonreactive (NONREACTIVE) 04/18/19 08:15 lab noted - Treatment Hospital Course: Detox Protocol Followed, Detoxed Safely, Responded well, Discharged Condition Good, Rehab Referral Accepted Patient has Accepted a [facility] Referral [facility]: [facility] - Medication Discharge Medications: Ambulatory Orders Naloxone HCl [Narcan] 4 mg NS ONCE #1 spray 06/21/18 - Diagnosis (1) Opioid dependence with withdrawal Current Visit: Yes Status: Acute (2) Nicotine dependence Current Visit: Yes Status: Acute Qualifiers: Nicotine product type: cigarettes Substance use status: in withdrawal Qualified Code(s): F17.213 - Nicotine dependence, cigarettes, with withdrawal (3) Hepatitis C virus carrier state Current Visit: Yes Status: Chronic - AMA Did Patient Leave Against Medical Advice: No COWS (PN) - Opiate Withdrawal Resting Pulse: 0= [place] 80 or Below Sweatin= No chills or Flushing Restless Observation: 0= Sits Still Pupil Size: 0= Normal to Room Light Bone or Joint Aches: 1= Mild Discomfort Runny Nose/ Eye Tearin= None GI Upset > 30mins: 0= None Tremor Observation of Outstretched Hands: 0= None Yawning Observation: 0= None Anxiety or Irritability: 1=Feels Anxious/Irritable Goose Flesh Skin: 0=Smooth Skin COWS Score: 2
[2019-04-21 09:11] VITALS: BP 115/72; PULSE 82; TEMP 96
[2019-04-21] MEDS: PRENATAL VITAMINS W/ FOLIC ACID TABLET (FP) PO SCH (12:07)
[2019-04-21] MEDS: NICOTINE 21 MG/24 HOURS TOPICAL PATCH TD SCH (12:07)
== END 2019-04-21 12:17 | disposition home or self-care (01) | DRG 773 ==
LOC: YASAS 12:54 → Y3N 18:56
PROVIDERS: ADMIT Allergy & Immunology; ATTEND Allergy & Immunology
PROC: HZ2ZZZZ Detoxification Services for Substance Abuse Treatment (ICD-10-PCS; principal; 2019-04-17)
DX: F11.23 Opioid dependence with withdrawal (principal); F17.213 Nicotine dependence, cigarettes, with withdrawal; F41.8 Other specified anxiety disorders; F32.9 Major depressive disorder, single episode, unspecified; B18.2 Chronic viral hepatitis C; Z86.19 Personal history of other infectious and parasitic diseases; Z87.828 Personal history of other (healed) physical injury and trauma; Z87.898 Personal history of other specified conditions
CPT/HCPCS: 36415; 80053; 81003; 85027; 86593; 93005; 93010

== ENCOUNTER 2020-07-02 17:28 | Inpatient (IN) | payer OTHER ==
[2020-07-02 19:33] VITALS: BMI 25.4
[2020-07-02] MEDS ORDERED: ONDANSETRON *ODT* 4 MG TABLET SL PRN (19:39)
[2020-07-02] MEDS ORDERED: MAGNESIUM HYDROX 2400MG/30ML ORAL SUSPENSION 30 ML CUP PO PRN (19:39)
[2020-07-02] MEDS ORDERED: cloNIDine HCL 0.1 MG TABLET PO PRN (19:39)
[2020-07-02] MEDS ORDERED: BISMUTH SUBSALICYLATE 524 MG/30 ML UD PO PRN (19:39)
[2020-07-02] MEDS ORDERED: MENTHOL/PHENOL 1 EACH UD MM PRN (19:39)
[2020-07-02] MEDS ORDERED: IBUPROFEN 400 MG TABLET (FP) PO PRN (19:39)
[2020-07-02] MEDS ORDERED: ACETAMINOPHEN 325 MG TABLET (FP) PO PRN ×2 (19:39)
[2020-07-02] MEDS ORDERED: MAGNESIUM CITRATE 300 ML BOTTLE PO PRN (19:39)
[2020-07-02] MEDS ORDERED: MAG HYDROX/AL HYDROX/SIMETH 30 ML UNIT-DOSE CUP PO PRN (19:39)
[2020-07-02] MEDS ORDERED: METHADONE HCL 10 MG TABLET (FOR DETOX USE ONLY) PO ONE (19:39)
[2020-07-02] MEDS ORDERED: METHOCARBAMOL 500 MG TABLET PO PRN (19:39)
[2020-07-02] MEDS ORDERED: METHADONE HCL 10 MG TABLET (FOR DETOX USE ONLY) ONE (23:08)
[2020-07-02] MEDS: MELATONIN 5 MG TABLETS PO SCH (23:15)
[2020-07-02] MEDS: THIAMINE HCL 100 MG TABLET (FP) PO SCH (23:16)
[2020-07-03] MEDS ORDERED: METHADONE HCL 5 MG TABLET (FOR DETOX USE ONLY) ONE (09:45)
[2020-07-03] MEDS ORDERED: METHADONE HCL 10 MG TABLET (FOR DETOX USE ONLY) ONE (09:45)
[2020-07-03] MEDS ORDERED: METHADONE (DETOX) 20 MG, METHADONE (DETOX) 5 MG PO ONE (10:00)
[2020-07-03] MEDS: PRENATAL VITAMINS W/ FOLIC ACID TABLET (FP) PO SCH (10:19)
[2020-07-03 10:51] LABS: HEMATOCRIT 42.4 % (35.4-49); HEMOGLOBIN 14.5 GM/dL (11.7-16.9); MCH 31.1 pg (25.7-33.7); MCHC 34.2 g/dl (32.0-35.9); MEAN CELL VOLUME 91.1 fl (80-96); MEAN PLT VOLUME 8.8 fl (7.5-11.1); PLATELET COUNT 212 K/MM3 (134-434); RBC 4.66 M/mm3 (4.00-5.60); RDW 13.3 % (11.9-15.9); WHITE BLOOD COUNT 6.3 K/mm3 (4.0-10.0)
[2020-07-03 10:55] LABS: CALCIUM 9.2 mg/dL (8.5-10.1)
[2020-07-03 10:56] LABS: ALBUMIN 3.7 g/dl (3.4-5.0); BLOOD UREA NITROGEN 21.6 mg/dL (7-18)
[2020-07-03 10:59] LABS: CREATININE 0.9 mg/dL (0.55-1.3)
[2020-07-03 11:01] LABS: BILIRUBIN,TOTAL 0.8 mg/dL (0.2-1); TOT PROT 6.9 g/dl (6.4-8.2)
[2020-07-03 11:11] LABS: POTASSIUM 4.5 mmol/L (3.5-5.1)
[2020-07-03] MEDS ORDERED: diazePAM 5 MG TABLET PO PRN (13:40)
[2020-07-03] MEDS: MELATONIN 5 MG TABLETS PO SCH (22:31)
[2020-07-03] MEDS: THIAMINE HCL 100 MG TABLET (FP) PO SCH (22:32)
[2020-07-04] MEDS ORDERED: METHADONE HCL 10 MG TABLET (FOR DETOX USE ONLY) PO ONE (10:00)
[2020-07-04] MEDS: PRENATAL VITAMINS W/ FOLIC ACID TABLET (FP) PO SCH (10:06)
[2020-07-04] MEDS: THIAMINE HCL 100 MG TABLET (FP) PO SCH (22:26)
[2020-07-04] MEDS: MELATONIN 5 MG TABLETS PO SCH (22:26)
[2020-07-05] MEDS ORDERED: METHADONE HCL 10 MG TABLET (FOR DETOX USE ONLY) ONE (09:51)
[2020-07-05] MEDS ORDERED: METHADONE HCL 5 MG TABLET (FOR DETOX USE ONLY) ONE (09:52)
[2020-07-05] MEDS ORDERED: METHADONE (DETOX) 10 MG, METHADONE (DETOX) 5 MG PO ONE (10:00)
[2020-07-05] MEDS: PRENATAL VITAMINS W/ FOLIC ACID TABLET (FP) PO SCH (10:11)
[2020-07-05] MEDS: MELATONIN 5 MG TABLETS PO SCH (22:22)
[2020-07-05] MEDS: THIAMINE HCL 100 MG TABLET (FP) PO SCH (22:22)
[2020-07-06] MEDS ORDERED: METHADONE HCL 10 MG TABLET (FOR DETOX USE ONLY) PO ONE (10:00)
[2020-07-06] MEDS: PRENATAL VITAMINS W/ FOLIC ACID TABLET (FP) PO SCH (10:15)
[2020-07-06] MEDS: MELATONIN 5 MG TABLETS PO SCH (22:40)
[2020-07-06] MEDS: THIAMINE HCL 100 MG TABLET (FP) PO SCH (22:40)
[2020-07-07] MEDS ORDERED: METHADONE HCL 5 MG TABLET (FOR DETOX USE ONLY) PO ONE (06:00)
[2020-07-07 08:58] VITALS: BP 115/77; PULSE 61; TEMP 97.3
== END 2020-07-07 09:24 | disposition home or self-care (01) | DRG 773 ==
LOC: YASAS 17:28 → Y3N 07-03 08:46
PROVIDERS: ADMIT Allergy & Immunology; ATTEND Allergy & Immunology
PROC: HZ2ZZZZ Detoxification Services for Substance Abuse Treatment (ICD-10-PCS; principal; 2020-07-03)
DX: F11.23 Opioid dependence with withdrawal (principal); F17.210 Nicotine dependence, cigarettes, uncomplicated; B18.2 Chronic viral hepatitis C; R79.89 Other specified abnormal findings of blood chemistry; Z86.19 Personal history of other infectious and parasitic diseases; Z87.828 Personal history of other (healed) physical injury and trauma
CPT/HCPCS: 36415; 80053; 85027; 86780; C9803; U0003; U0005